=== PATIENT | male | born 2000 | race Caucasian/White ===

== ENCOUNTER 2022-04-18 19:06 | Emergency (ER) | payer MEDICAID, SELFPAY ==
--- NOTE | 2022-04-18 19:08 | XRR_ITS ---
PROCEDURE INFORMATION: Exam: XR Left Ankle Exam date and time: 04/18/2022 7:19 PM Age: 22 years old Clinical indication: Pain; Ankle; Left; Additional info: Injury TECHNIQUE: Imaging protocol: Radiologic exam of the Left ankle. Views: 3 or more views. COMPARISON: No relevant prior studies available. FINDINGS: Bones/joints: Normal. Soft tissues: Normal. XR/XR ankle LT min 3V* [id number] IMPRESSION: No acute findings.
[2022-04-18 19:13] VITALS: BP 166/92; PULSE 99; RESP 19; TEMP 37.2; O2SAT 100; BMI 40.4
--- NOTE | 2022-04-18 21:02 | W.ED.EXTPRO ---
HPI - Extremity Problem General: Chief complaint: Extremity Injury, Lower Stated complaint: left ankle injury Time Seen by Provider: 04/18/22 19:55 History of Present Illness: Patient is in today for left ankle pain. He reports that he was going down the stairs and he missed the last step falling on a twisted ankle. He reports he has had a similar injury in the same ankle last year. He states that his pain is about a 5-6 on a 0-to-10 scale except for when I touch it and then at the 10. Associated symptoms: Deny fever(s) Review of Systems Const: Denies: fever(s), chills or body aches Resp: Denies: dyspnea, productive cough or non-productive cough GI: Denies: abdominal pain, nausea or vomiting Musc: Reports: extremity pain and joint pain Physical Exam Const: COMMON NORMALS: no acute distress, patient oriented x3 and alert Neck/C-Spine: COMMON NORMALS: no JVD Resp: COMMON NORMALS: normal respiratory effort, No use of accessory muscles and clear to auscultation bilaterally AUSCULTATION: clear to auscultation bilaterally Cardio: COMMON NORMALS: no JVD, regular rate, S1 normal heart sound present and S2 normal heart sound present RATE: regular rate HEART SOUNDS: S1 normal heart sound present and S2 normal heart sound present Extremity: NARRATIVE EXTREMITY EXAM: Tenderness to palpation left lateral malleolus. There is moderate soft tissue swelling noted. No bruising. No obvious bony deformity. CSM within normal limits to distal foot although range of motion is extremely limited due to pain. Neuro: COMMON NORMALS: patient oriented x3 SENSORIUM/ORIENTATION: Yes alert Course Vital Signs: Vital signs: Vital Signs Temperature 98.9 F 04/18/22 19:13 Pulse Rate 99 04/18/22 19:13 Respiratory Rate 19 H 04/18/22 19:13 Blood Pressure 166/92 04/18/22 19:13 Pulse Oximetry 100 04/18/22 19:13 Oxygen Delivery Me thod 04/18/22 19:13 MDM - Extremity (Nontraumatic) Medical Decision Making Ankle sprain versus fracture. X-ray shows no acute findings. Discussed with patient conservative treatment of ankle sprain. Jose Roberto wrap the ankle provide crutches advised patient to stay off the ankle for 3 to 4 days and then slowly advance weight as tolerated. Ice the ankle elevated and rested to help with healing, swelling, pain. Alternate Tylenol and Motrin as needed for pain and inflammation. Follow-up with your primary care provider as needed. Return to the ER for new or worsening symptoms. Lab Data Radiology Impressions Ankle X-Ray 04/18/22 19:08 IMPRESSION: No acute findings. Discharge Plan Discharge Patient Disposition: Home Clinical Impression: Ankle sprain and strain Condition: Stable Discharge Orders: Discharge ED (Routine); Ordered 04/18/22 Ordered By: Lydia Subramanian Discharge Diet: Usual diet Discharge Activity: Limit activity as instructed Patient Instructions: Ankle Sprain (ED) Activity Restrictions/Additional Instructions: Ice, rest, elevate the extremity. Use crutches to limit weightbearing on the ankle for the next 3 days, Then advance at weightbearing as tolerated. Follow-up with primary care provider. Return to the ER as needed for new or worsening symptoms Stand Alone Forms: Work/School Release Coding Level of Care Code ED Configuration Manager for Michelle Fwd Exam Expanded Problem Focused
[2022-04-18] MEDS: ketorolac 60 mg/2 mL INJ IM (21:25)
== END 2022-04-18 21:35 | disposition home or self-care (01) ==
PROVIDERS: Emergency Provider Nurse Practitioner Family
DX: S93.402A Sprain of unspecified ligament of left ankle, initial encounter (principal); S96.912A Strain of unspecified muscle and tendon at ankle and foot level, left foot, initial encounter; X50.1XXA Overexertion from prolonged static or awkward postures, initial encounter; Y93.89 Activity, other specified
CPT/HCPCS: 73610; 96372; 99283; E0114; J1885